=== PATIENT | female | born 1990 | race Caucasian/White ===

== ENCOUNTER 2016-09-19 23:01 | Emergency (ER) | payer BC, MEDICARE, MEDICAID ==
[2016-09-20] MEDS ORDERED: GUAIFENESIN-COD10 ML PO (01:36)
== END 2016-09-20 01:43 ==
LOC: EDMED 23:01
DX: B34.9 Viral infection, unspecified (principal); F17.200 Nicotine dependence, unspecified, uncomplicated